=== PATIENT | female | born 2000 | race African-American/Black ===

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

== ENCOUNTER 2020-05-24 20:18 | Emergency (ER) | payer OTHER, MEDICAID ==
--- NOTE | 2020-05-24 20:51 | ER Document Report ---
ED Medical Screen (RME) - General Chief Complaint: Vaginal Pain Stated Complaint: VAGINAL PAIN Primary Care Provider: KAROLINE JAMES MD [Primary Care Provider] - Follow up as needed Notes: Patient is a 19-year-old -[place] female with a history of Bartholin's gland abscess formation who was seen yesterday by her women's health provider had an I&D and packing placed. She states she went home a couple hours later and removed the packing. She states since last night the area seems to be getting worse and swelling more. She denies any known further drainage. She is unsure if it seals back up. Denies any vaginal bleeding or urinary complaints. Denies any fever, chills or night sweats. No abdominal pain. I have treated and performed a rapid initial assessment of this patient. A comprehensive ED assessment and evaluation of the patient, analysis of test results and completion of medical decision making process will be conducted by additional ED providers. PHYSICAL EXAMINATION: GENERAL: Well-appearing, well-nourished and in no acute distress. A&Ox4. Answers questions appropriately. TRAVEL OUTSIDE OF THE [place] IN LAST 30 DAYS: No - Related Data Allergies/Adverse Reactions: No Known Allergies Allergy (Unverified 09/12/16 16:31) Past Medical History Renal/ Medical History: Denies: Hx Peritoneal Dialysis Doctor's Discharge - Discharge Referrals: KAROLINE JAMES MD [Primary Care Provider] - Follow up as needed
[2020-05-24] MEDS ORDERED: KETOROLAC TROMETHAMINE 60 MG/2 ML SDV IM ONE (22:54)
[2020-05-25] MEDS ORDERED: HYDROCODONE/ACETAMINOPHEN 5-325 MG TABLET PO ONE (02:08)
--- NOTE | 2020-05-25 02:20 | ER Document Report ---
ED General - General Chief Complaint: Vaginal Pain Stated Complaint: VAGINAL PAIN Time Seen by Provider: 05/25/20 01:52 Primary Care Provider: TEN TATE MD [ACTIVE STAFF] - Follow up tomorrow (Today as scheduled) KAROLINE JAMES MD [Primary Care Provider] - Follow up as needed Mode of Arrival: Ambulatory Information source: Patient Notes: 19-year-old female with no previous medical problems presents to the emergency room complaining of persistent pain to her vaginal area. Patient states she had a Bartholin cyst [facility] on [facility] at [facility] was sent home with a gauze dressing. Was told that she could remove it when she got home. States tonight the pain got more severe. Has been taking Tylenol without relief. States she has had some discharge. Did not start antibiotics until yesterday and states she is only had 1 dose so far. She denies any fevers. No nausea, no vomiting, no urinary symptoms. No history of previous Bartholin cyst. States she has a follow-up appointment this morning with UNDERWRITER SOLICITATION DIRECTOR. TRAVEL OUTSIDE OF THE [place] IN LAST 30 DAYS: No - Related Data Allergies/Adverse Reactions: No Known Allergies Allergy (Verified 05/24/20 21:02) Past Medical History - General Information source: Patient - Social History Smoking Status: Never Smoker Frequency of alcohol use: None Drug Abuse: None Family History: Reviewed & Not Pertinent Renal/ Medical History: Denies: Hx Peritoneal Dialysis Review of Systems - Review of Systems Constitutional: No symptoms reported Cardiovascular: No symptoms reported Respiratory: No symptoms reported Gastrointestinal: denies: Abdominal pain, Nausea, Vomiting Genitourinary: No symptoms reported Female Genitourinary: Other - Vaginal pain. denies: Vaginal discharge Musculoskeletal: No symptoms reported Skin: No symptoms reported Neurological/Psychological: No symptoms reported -: Yes All other systems reviewed and negative Physical Exam - Vital signs Vitals: Temp Pulse Resp BP Pulse Ox 98.7 F 93 H 16 143/108 H 100 05/24/20 21:01 05/24/20 21:01 05/24/20 21:01 05/24/20 21:01 05/24/20 21:01 - General General appearance: Appears well, Alert In distress: Mild - Respiratory Respiratory status: No respiratory distress Chest status: Nontender Breath sounds: Normal Chest palpation: Normal - Cardiovascular Rhythm: Regular Heart sounds: Normal auscultation Murmur: No - Abdominal Inspection: Normal Distension: No distension Bowel sounds: Normal Tenderness: Nontender Organomegaly: No organomegaly - Genitourinary External exam: Other - There is a draining Bartholin cyst noted to the left labia. It is draining some thick white purulent drainage. It is tender to palpation. Not warm to touch. - Neurological Neuro grossly intact: Yes Cognition: Normal Orientation: AAOx4 John Coma Scale Eye Opening: Spontaneous John Coma Scale Verbal: Oriented [place] Coma Scale Motor: Obeys Commands [place] Coma Scale Total: 15 Speech: Normal Motor strength normal: LUE, RUE, LLE, RLE Sensory: Normal - Skin Skin Temperature: Warm Skin Moisture: Dry Skin Color: Normal Course - Re-evaluation Re-evalutation: 05/25/20 02:16 Patient with an active purulent white discharge draining from the Bartholin's cyst that is tender to palpation. Nonfluctuant. Counseled on sitz bath 20 minutes 3 times a day. Has only had 1 dose of antibiotics. Counseled on importance of taking her antibiotics as prescribed. Tylenol and or Motrin for pain. Will be given 1 hydrocodone prior to discharge. Patient has a follow-up appointment in the morning with her UNDERWRITER SOLICITATION DIRECTOR. Patient was given strict return to the emergency room guidelines. Return for any new or worsening symptoms. All questions were answered. Patient verbalized understanding and agrees with plan of care. 05/25/20 06:12 - Vital Signs Vital signs: Temp Pulse Resp BP Pulse Ox 98.6 F 90 14 127/76 H 100 05/25/20 02:30 05/25/20 02:30 05/25/20 02:30 05/25/20 02:30 05/25/20 02:30 Discharge - Discharge Clinical Impression: Bartholin cyst Condition: Stable Disposition: HOME, SELF-CARE Instructions: Bartholin Gland Cyst or Abscess ([facility]) Additional Instructions: Patient was counseled on warm sitz bath 20 minutes 3 times a day. She was counseled on how to do a proper sitz bath. Take antibiotics as prescribed. Tylenol and/or Motrin as needed for pain. Outpatient follow-up with your UNDERWRITER SOLICITATION DIRECTOR today as scheduled. Return to the emergency room for any new or worsening symptoms. Referrals: KAROLINE JAMES MD [Primary Care Provider] - Follow up as needed TEN TATE MD [ACTIVE STAFF] - Follow up tomorrow (Today as scheduled)
[2020-05-25 02:32] VITALS: BP 127/76
== END 2020-05-25 02:30 | disposition home or self-care (01) ==
LOC: ER 20:18
DX: N75.0 Cyst of Bartholin's gland (principal); R10.2 Pelvic and perineal pain
CPT/HCPCS: 99283; 96372; J1885